=== PATIENT | female | born 1970 | race Caucasian/White ===

== ENCOUNTER 2020-09-24 17:51 | Observation (INO) | payer BC ==
--- NOTE | 2020-09-24 18:06 | ED ---
General Adult HPI - General Chief complaint: Abdominal Pain Stated complaint: flank pain Time Seen by Provider: 09/24/20 17:54 Source: patient, RN/MD, EMS, old records reviewed Mode of arrival: EMS Limitations: no limitations - History of Present Illness Initial comments: Patient was transferred to our ED by ambulance from [facility]. Per [facility] ER physician's report, the patient presented there complaining of having left flank pain radiating to the left side of her abdomen, nausea and vomiting. Per ER physician, the patient's CT imaging report showed a 18 mm linear density within the lumen of her distal jejunum, concerning for ingested foreign body. Per physician, there is no evidence of bowel obstruction or perforation on CT imaging. Per physician, the patient is afebrile and without leukocytosis. Per physician, the patient denied being aware of a foreign body ingestion. Patient was transferred here secondary to repeated episodes of pain, requiring multiple doses of pain medications. Patient states that her pain began about 3 days ago. Patient states that her pain is in her left flank region and radiates to the left side of her abdomen. Patient admits to nausea and vomiting. Patient denies known foreign body ingestion, trauma or injury, fever or chills, headache, chest pain, dyspnea, cough or cold symptoms, dizziness, lower abdominal pain, diarrhea or constipation, bloody or melanotic stool, hematemesis, dysuria/hematuria/urinary frequency/urinary symptoms, or any other symptoms or complaints. - Related Data Home Medications Medication Instructions Recorded Confirmed HYDROcodone/APAP 5-325MG [[place] 1 tab PO Q8H PRN 12/07/14 12/09/14 5-325] Omeprazole [PriLOSEC] 20 mg PO DAILY 12/07/14 12/09/14 amLODIPine [Norvasc] 10 mg PO DAILY 12/07/14 12/09/14 Previous Rx's Medication Instructions Recorded Ondansetron Odt [Zofran Odt] 4 mg PO Q8HR PRN #14 tab 12/09/14 Allergies Allergy/AdvReac Type Severity Reaction Status Date / Time No Known Allergies Allergy Verified 09/24/20 18:04 Review of Systems ROS Statement: Those systems with pertinent positive or pertinent negative responses have been documented in the HPI. ROS Other: All systems not noted in ROS Statement are negative. Past Medical History Past Medical History: Eye Disorder, GERD/Reflux, Hypertension Additional Past Medical History / Comment(s): cataract r eye. kidney stones History of Any Multi-Drug Resistant Organisms: None Reported Past Surgical History: Cholecystectomy Additional Past Surgical History / Comment(s): EGD Past Anesthesia/Blood Transfusion Reactions: No Reported Reaction Past Psychological History: No Psychological Hx Reported Smoking Status: Never smoker Past Alcohol Use History: None Reported Past Drug Use History: None Reported - Past Family History Mother Family Medical History: Cancer General Exam Limitations: no limitations General appearance: alert, in no apparent distress Head exam: Present: atraumatic, normocephalic Eye exam: Present: normal appearance, EOMI ENT exam: Present: mucous membranes moist Neck exam: Present: other (Trachea is in midline) Respiratory exam: Present: normal lung sounds bilaterally. Absent: respiratory distress, wheezes, rales, rhonchi, stridor Cardiovascular Exam: Present: regular rate, normal rhythm, normal heart sounds, other (Normal radial pulses bilaterally) GI/Abdominal exam: Present: soft, normal bowel sounds, other (Mild epigastric/left upper quadrant abdominal tenderness). Absent: distended, guarding, rebound Extremities exam: Absent: tenderness, pedal edema Back exam: Absent: tenderness, CVA tenderness (R), CVA tenderness (L) Neurological exam: Present: alert, oriented X3. Absent: motor sensory deficit Psychiatric exam: Present: normal affect, normal mood Skin exam: Present: warm, dry, intact, normal color Course Vital Signs 09/24/20 17:54 Temperature 98.6 F Pulse Rate 72 Respiratory 18 Rate Blood Pressure 134/88 O2 Sat by Pulse 98 Oximetry - Reevaluation(s) Reevaluation #1: 09/24/20 18:22 Case, H&P, outside hospital test results, my pre-arrival discussion with Dr. Boyd (general surgery) and ED management were discussed with Dr. Ferrari. He accepts hospital admission. He has no further recommendations at this time. Medical Decision Making - Medical Decision Making I discussed the patient's case with the on-call general surgeon (Dr. Boyd) based on the information I received from the [facility] ER physician. Dr. Boyd stated that given that there are no CT findings of perforation or ob struction, and given that the patient is afebrile and without leukocytosis, he did not feel that the patient was a surgical patient. He recommended admission to the medical service, and stated that he would see the patient in consultation. This was all discussed with Dr. Ferrari, and Dr. Ferrari has accepted hospital admission. Patient's outside hospital labs and imaging reports were all reviewed myself. They are pertinent for the CT findings discussed in the HPI, as well as normal WBC count of 6.23, a normal hemoglobin of 13.4, a normal CMP, a normal lipase, and a UA that is only remarkable for 2+ ketones and 1+ leuk esterase. Patient has a nonsurgical abdominal exam. I am uncertain whether the patient's symptoms are secondary to the CT finding of suspected foreign body, but there is no other definite explanation for the patient's symptoms. Will admit the patient to the hospital for observation, symptomatic management, serial examinations and general surgery consultation. Disposition Clinical Impression: Abdominal pain, Nausea and vomiting, Foreign body ingestion Disposition: ADMITTED IP TO THIS [facility] Condition: Stable Is patient prescribed a controlled substance at d/c from ED?: No Referrals: Lionel Perrin MD [Primary Care Provider] - 1-2 days Time of Disposition: 18:32
[2020-09-24] MEDS ORDERED: SODIUM CHLORIDE 0.9% 500 ML 500 ML IV ONE (18:21)
[2020-09-24] MEDS ORDERED: ONDANSETRON 4 MG/2 ML VIAL IVP STA (18:21)
[2020-09-24] MEDS ORDERED: ONDANSETRON 4 MG/2 ML VIAL IVP PRN (18:32)
[2020-09-24] MEDS ORDERED: MORPHINE SULFATE 4 MG/ML SYRINGE IV PRN (18:32)
[2020-09-24] MEDS ORDERED: NALOXONE 0.4 MG/ML 1 ML VIAL IV PRN (18:32)
[2020-09-24 20:28] VITALS: RESP 16
[2020-09-24] MEDS ORDERED: PROCHLORPERAZINE INJ 10 MG/2 ML VIAL IVP PRN (20:28)
[2020-09-24] MEDS: SODIUM CHLORIDE 0.9% 1,000 ML IV SCH (21:35)
[2020-09-24] MEDS: TAMSULOSIN 0.4 MG CAP.ER.24H PO SCH (21:48)
--- NOTE | 2020-09-24 22:01 | XR ---
EXAMINATION TYPE: XR abdomen acute w cxr DATE OF EXAM: 09/24/2020 COMPARISON: NONE HISTORY: Abdominal pain TECHNIQUE: 4 views FINDINGS: Heart and mediastinum are normal. Lungs are clear. Diaphragm is normal. Bowel gas pattern i s normal. There is no sign of intestinal obstruction or pneumoperitoneum. Fecal pattern is normal. Th ere are clips from cholecystectomy. There are wires from tubal surgery.. IMPRESSION: Nonacute abdomen. No active cardiopulmonary disease. Normal heart.
--- NOTE | 2020-09-24 22:32 | P.HPIM ---
History of Present Illness H&P Date: 09/24/20 Chief Complaint: left flank pain History of presenting complaint: This is a pleasant 50-year-old patient of Dr. Perrin. Chronic stable medical conditions include diabetes, GERD, hypertension, hypothyroid. Patient's had kidney stones before. Patient now presents with 3 days of increasing left flank pain. Usually to the front. Some associated chills. Urinary frequency. Pain comes and spasms. Patient was initially seen at [facility] and sent down here. Patient did have a computed tomography scan imaging that showed an 18 mm lead-in density within the lumen of the distal jejunum. There is a concern over ingested foreign body. Patient denies any ingestion of the same. ER physician did speak to GIM called Dr. Resendiz and Dr. matt from general surgery. Patient been having significant pain. Has decided to come in. Review of systems: GEN.: Tired some chills EYES: None HEENT: None NECK: None RESPIRATORY: None CARDIOVASCULAR: None GASTROINTESTINAL: As above GENITOURINARY: None MUSCULOSKELETAL: None LYMPHATICS: None HEMATOLOGICAL: None PSYCHIATRY: None NEUROLOGICAL: None Past medical history to include: Diabetes, GERD, hypertension, Regular), kidney stones, endometriosis Social history: Does not smoke or drink alcohol. . Employed. Physical examination: VITAL SIGNS: 97.5, 75, 16, 130/83, 99% room air GENERAL: BMI 25.2, laying in bed, but uncomfortable. EYES: Pupils equal. Conjunctiva normal. HEENT: External appearance of nose and ears normal, oral cavity grossly normal. NECK: JVD not raised; masses not palpable. HEART: First and second heart sounds are normal; no edema. LUNGS: Respiratory rate normal; clear to auscultation. ABDOMEN: Soft, left renal angle tenderness, no guarding rigidity, liver spleen not palpable, no masses palpable. PSYCH: Alert and oriented x3; mood and affect normal. NEUROLOGICAL: Cranial nerves grossly intact; no facial asymmetry, power and sensation grossly intact. LYMPHATICS: No lymph nodes palpable in the axilla and neck INVESTIGATIONS, reviewed in the clinical context: Coronavirus [PCR]-not detected Labs from [facility]: Sodium 139 potassium 3.6 creatinine 0.4 lactic acid 0.7 lipase 110 UA positive for leukoesterase, WBC 5-10, squamous epithelial cells 2-4 Computed tomography scan his abdomen describing 18 mm foreign body in the distal jejunum Assessment and plan: -This is a patient with prior knee stones presents with left flank pain. Pain is on the shaft paroxysmal. Present for 3-4 days. Most likely this is a stone in the renal pelvic junction. We will increase IV fluids to 20 mL an hour. Consult urology. -Computed tomography scan showing a distal jejunal 18 mm foreign body. Patient denies ingestion of the same. General surgery is consulted for the same. -Diabetes mellitus type 2 Diet controlled -GERD Prilosec continue -Essential hypertension Zestril continue -Hypothyroid Continue levothyroxin Consult urology and chills surgery. Home medications resumed. Increase IV fluids to 20 mL an hour. Flomax added. Pain control. Patient be given a hat to pass urine in the same./Net Lovenox for DVT prophylaxis. Past Medical History Past Medical History: Diabetes Mellitus, Eye Disorder, GERD/Reflux, Hypertension Additional Past Medical History / Comment(s): cataract r eye. kidney stones,. hypokalemia/hypomagnesemia - had to be hospitalized, endometriosis. History of Any Multi-Drug Resistant Organisms: None Reported, C-DIFF Date of last positivie culture/infection: 2001 MDRO Source:: Stool Past Surgical History: Cholecystectomy Additional Past Surgical History / Comment(s): EGD Past Anesthesia/Blood Transfusion Reactions: No Reported Reaction, Postoperative Nausea & Vomiting (PONV) Past Psychological History: No Psychological Hx Reported Smoking Status: Never smoker Past Alcohol Use History: None Reported Past Drug Use History: None Reported Additional Drug Use History / Comment(s): Denies alcohol use, denies smoking tobacco or marijuana. - Past Family History Mother Family Medical History: Cancer Medications and Allergies Home Medications Medication Instructions Recorded Confirmed Type Acetaminophen [Tylenol] 1,000 mg PO Q4-6H PRN 09/24/20 09/24/20 History Calcium Carbonate/Vitamin D3 1 tab PO DAILY 09/24/20 09/24/20 History [Calcium 600-Vit D3 5 Mcg (200 Iu)] Cetirizine HCl [Zyrtec] 10 mg PO DAILY 09/24/20 09/24/20 History Cholecalciferol (Vitamin D3) 125 mcg PO DAILY 09/24/20 09/24/20 History [Vitamin D3 (5000 Iu)] Cyanocobalamin [Vitamin B-12] 500 mcg PO DAILY 09/24/20 09/24/20 History Ergocalciferol (Vitamin D2) 1,250 mcg PO TUFR 09/24/20 09/24/20 History [Drisdol (50,000 Iu)] Levothyroxine Sodium 88 mcg PO DAILY 09/24/20 09/24/20 History Multivitamins, Thera [Multivitamin 1 tab PO DAILY 09/24/20 09/24/20 History (formulary)] Omeprazole [PriLOSEC] 40 mg PO DAILY 09/24/20 09/24/20 History Potassium Gluconate 99 mg PO DAILY 09/24/20 09/24/20 History Turmeric Root Extract [Turmeric] 500 mg PO DAILY 09/24/20 09/24/20 History lisinopriL [Zestril] 2.5 mg PO DAILY 09/24/20 09/24/20 History Allergies Allergy/AdvReac Type Severity Reaction Status Date / Time No Known Allergies Allergy Verified 09/24/20 21:22 Physical Exam Vitals: Vital Signs Temp Pulse Pulse Resp BP BP Pulse Ox 09/24/20 20:28 97.5 F L 75 16 130/83 99 09/24/20 19:00 98.4 F 75 18 135/85 100 09/24/20 17:54 98.6 F 72 18 134/88 98 Intake and Output 09/24/20 09/24/20 09/24/20 06:59 14:59 22:59 Other: Voiding Method Toilet Weight 66.678 kg Thrombosis Risk Factor Assmnt - Choose All That Apply Any of the Below Risk Factors Present?: Yes Each Factor Represents 1 point: Age 41-60 years Other Risk Factors: No Other congenital or acquired thrombophilia - If yes, enter type in comment: No Thrombosis Risk Factor Assessment Total Risk Factor Score: 1 Thrombosis Risk Factor Assessment Level: Low Risk
[2020-09-24 23:37] LABS: Basophils % (A) 0 %; Eosinophils # (A) 0.1 k/uL (0-0.7); Eosinophils % (A) 1 %; HCT 41.2 % (34.0-46.0); HGB 13.4 gm/dL (11.4-16.0); Lymphocytes # (A) 0.7 k/uL (1.0-4.8); Lymphocytes % (A) 9 %; MCH 29.1 pg (25.0-35.0); MCHC 32.6 g/dL (31.0-37.0); MCV 89.3 fL (80.0-100.0); Mean Platelet Volume 8.4; Monocytes # (A) 0.2 k/uL (0-1.0); Monocytes % (A) 3 %; Neutrophils # (A) 7.3 k/uL (1.3-7.7); Neutrophils % (A) 87 %; Platelet Count 279 k/uL (150-450); RBC 4.61 m/uL (3.80-5.40); RDW 13.5 % (11.5-15.5); WBC 8.4 k/uL (3.8-10.6)
[2020-09-24 23:55] LABS: ALT 13 U/L (4-34); AST 21 U/L (14-36); African American GFR (CKD) >90 (>60 ml/min/1.73 sqM); Albumin 3.8 g/dL (3.5-5.0); Alkaline Phosphatase 55 U/L (38-126); Anion Gap 8 mmol/L; Blood Urea Nitrogen 16 mg/dL (7-17); Calcium 8.9 mg/dL (8.4-10.2); Carbon Dioxide 23 mmol/L (22-30); Chloride 105 mmol/L (98-107); Glucose 106 mg/dL (74-99); Non-African American GFR(CKD) >90 (>60 ml/min/1.73 sqM); Sodium 136 mmol/L (137-145); Total Bilirubin 0.9 mg/dL (0.2-1.3); Total Protein 6.7 g/dL (6.3-8.2)
[2020-09-24 23:59] LABS: Potassium 4.3 mmol/L (3.5-5.1)
[2020-09-25] MEDS: LEVOTHYROXINE 88 MCG TAB PO SCH (06:24)
[2020-09-25] MEDS: SODIUM CHLORIDE 0.9% 1,000 ML IV SCH ×4 (06:25→20:21)
[2020-09-25 07:15] LABS: Basophils % (A) 0 %; Eosinophils # (A) 0.1 k/uL (0-0.7); Eosinophils % (A) 1 %; HCT 40.1 % (34.0-46.0); HGB 13.2 gm/dL (11.4-16.0); Lymphocytes # (A) 1.9 k/uL (1.0-4.8); Lymphocytes % (A) 31 %; MCH 28.5 pg (25.0-35.0); MCV 86.4 fL (80.0-100.0); Mean Platelet Volume 8.1; Monocytes # (A) 0.4 k/uL (0-1.0); Monocytes % (A) 7 %; Neutrophils # (A) 3.6 k/uL (1.3-7.7); Neutrophils % (A) 59 %; Platelet Count 284 k/uL (150-450); RBC 4.65 m/uL (3.80-5.40); RDW 13.5 % (11.5-15.5); WBC 6.1 k/uL (3.8-10.6)
[2020-09-25] MEDS: MORPHINE SULFATE 2 MG/ML SYRINGE IV PRN ×2 (07:15→17:58)
--- NOTE | 2020-09-25 07:24 | XR ---
EXAMINATION TYPE: XR abdomen acute w cxr DATE OF EXAM: 09/25/2020 COMPARISON: 09/24/2020 HISTORY: Abdominal pain TECHNIQUE: 4 views FINDINGS: Heart size is within normal limits. No focal consolidation, pneumothorax or pleural effusio n. Nonspecific, nonobstructive bowel gas pattern. Surgical clips in the right upper quadrant suggesti ve postcholecystectomy. No evidence of free air on the upright view. Moderate stool and gas are seen throughout the colon. Tubal ligation clips are seen. Multiple presumed pelvic phleboliths. IMPRESSION: 1. No evidence of acute pulmonary disease. 2. Nonspecific, nonobstructive bowel gas pattern. 3. Cholecystectomy clips.
[2020-09-25 07:36] LABS: ALT 11 U/L (4-34); AST 20 U/L (14-36); African American GFR (CKD) >90 (>60 ml/min/1.73 sqM); Albumin 3.5 g/dL (3.5-5.0); Alkaline Phosphatase 50 U/L (38-126); Anion Gap 4 mmol/L; Blood Urea Nitrogen 14 mg/dL (7-17); Calcium 8.6 mg/dL (8.4-10.2); Carbon Dioxide 24 mmol/L (22-30); Chloride 110 mmol/L (98-107); Glucose 83 mg/dL (74-99); Non-African American GFR(CKD) >90 (>60 ml/min/1.73 sqM); Potassium 4.1 mmol/L (3.5-5.1); Sodium 138 mmol/L (137-145); Total Bilirubin 0.9 mg/dL (0.2-1.3); Total Protein 6.3 g/dL (6.3-8.2)
[2020-09-25] MEDS: PANTOPRAZOLE 40 MG TABLET PO SCH (08:42)
[2020-09-25] MEDS: CYANOCOBALAMIN 500 MCG TAB PO SCH (08:42)
[2020-09-25] MEDS: MULTIVITAMINS, THERA 1 EACH TAB PO SCH (08:42)
--- NOTE | 2020-09-25 08:56 | P.GSCN ---
History of Present Illness Consult date: 09/25/20 History of present illness: 50 yo female with a several day history of back pain. SHe has a history of kidney stones in the past, non surgical. SHe went to the er where she had a ct scan that didnt show any stones. She is still having some pain there are no obvious gi complaints but the ct scan suggested a foreign body in the jejunum? Her urine perhaps has infection. Her wbc are normal She has no back problems. there are no symptoms of neuropathy. Review of Systems All systems: negative - Constitutional Denies fever, Denies weight loss - EENT Eyes: denies blurred vision Ears, nose, mouth and throat: Denies dysphagia - Cardiovascular Denies chest pain, Denies shortness of breath - Respiratory Denies cough, Denies 7 - Gastrointestinal Reports as per HPI - Genitourinary Genitourinary: Denies dysuria, Denies hematuria - Integumentary Denies rash, Denies unusual bruising - Neurological Denies headaches, Denies syncope - Hematologic/Lymphatic Denies easy bleeding, Denies easy bruising Past Medical History Past Medical History: Diabetes Mellitus, Eye Disorder, GERD/Reflux, Hypertension Additional Past Medical History / Comment(s): cataract r eye. kidney stones,. hypokalemia/hypomagnesemia - had to be hospitalized, endometriosis. History of Any Multi-Drug Resistant Organisms: None Reported, C-DIFF Year Discovered:: 2001 MDRO Source:: Stool Past Surgical History: Cholecystectomy Additional Past Surgical History / Comment(s): EGD Past Anesthesia/Blood Transfusion Reactions: No Reported Reaction, Postoperative Nausea & Vomiting (PONV) Past Psychological History: No Psychological Hx Reported Smoking Status: Never smoker Past Alcohol Use History: None Reported Past Drug Use History: None Reported Additional Drug Use History / Comment(s): Denies alcohol use, denies smoking tobacco or marijuana. - Past Family History Mother Family Medical History: Cancer Medications and Allergies Home Medications Medication Instructions Recorded Confirmed Type Acetaminophen [Tylenol] 1,000 mg PO Q4-6H PRN 09/24/20 09/24/20 History Calcium Carbonate/Vitamin D3 1 tab PO DAILY 09/24/20 09/24/20 History [Calcium 600-Vit D3 5 Mcg (200 Iu)] Cetirizine HCl [Zyrtec] 10 mg PO DAILY 09/24/20 09/24/20 History Cholecalciferol (Vitamin D3) 125 mcg PO DAILY 09/24/20 09/24/20 History [Vitamin D3 (5000 Iu)] Cyanocobalamin [Vitamin B-12] 500 mcg PO DAILY 09/24/20 09/24/20 History Ergocalciferol (Vitamin D2) 1,250 mcg PO TUFR 09/24/20 09/24/20 History [Drisdol (50,000 Iu)] Levothyroxine Sodium 88 mcg PO DAILY 09/24/20 09/24/20 History Multivitamins, Thera [Multivitamin 1 tab PO DAILY 09/24/20 09/24/20 History (formulary)] Omeprazole [PriLOSEC] 40 mg PO DAILY 09/24/20 09/24/20 History Potassium Gluconate 99 mg PO DAILY 09/24/20 09/24/20 History Turmeric Root Extract [Turmeric] 500 mg PO DAILY 09/24/20 09/24/20 History lisinopriL [Zestril] 2.5 mg PO DAILY 09/24/20 09/24/20 History Allergies Allergy/AdvReac Type Severity Reaction Status Date / Time No Known Allergies Allergy Verified 09/24/20 21:22 Surgical - Exam Vital Signs Temp Pulse Resp BP Pulse Ox 98.6 F 72 18 134/88 98 09/24/20 17:54 09/24/20 17:54 09/24/20 17:54 09/24/20 17:54 09/24/20 17:54 Results - Labs 09/25/20 06:51 09/25/20 06:51 Abnormal Lab Results - Last 24 Hours (Table) 09/24/20 09/24/20 09/25/20 Range/Units 23:10 23:11 06:51 Lymphocytes # 0.7 L (1.0-4.8) k/uL Sodium 136 L (137-145) mmol/L Chloride 110 H (98-107) mmol/L Creatinine 0.33 L 0.42 L (0.52-1.04) mg/dL Glucose 106 H (74-99) mg/dL Diabetes panel 09/24/20 09/25/20 Range/Units 23:10 06:51 Sodium 136 L 138 (137-145) mmol/L Potassium 4.3 4.1 (3.5-5.1) mmol/L Chloride 105 110 H (98-107) mmol/L Carbon Dioxide 23 24 (22-30) mmol/L BUN 16 14 (7-17) mg/dL Creatinine 0.33 L 0.42 L (0.52-1.04) mg/dL Glucose 106 H 83 (74-99) mg/dL Calcium 8.9 8.6 (8.4-10.2) mg/dL AST 21 20 (14-36) U/L ALT 13 11 (4-34) U/L Alkaline Phosphatase 55 50 (38-126) U/L Total Protein 6.7 6.3 (6.3-8.2) g/dL Albumin 3.8 3.5 (3.5-5.0) g/dL Calcium panel 09/24/20 09/25/20 Range/Units 23:10 06:51 Calcium 8.9 8.6 (8.4-10.2) mg/dL Albumin 3.8 3.5 (3.5-5.0) g/dL Pituitary panel 09/24/20 09/25/20 Range/Units 23:10 06:51 Sodium 136 L 138 (137-145) mmol/L Potassium 4.3 4.1 (3.5-5.1) mmol/L Chloride 105 110 H (98-107) mmol/L Carbon Dioxide 23 24 (22-30) mmol/L BUN 16 14 (7-17) mg/dL Creatinine 0.33 L 0.42 L (0.52-1.04) mg/dL Glucose 106 H 83 (74-99) mg/dL Calcium 8.9 8.6 (8.4-10.2) mg/dL Adrenal panel 09/24/20 09/25/20 Range/Units 23:10 06:51 Sodium 136 L 138 (137-145) mmol/L Potassium 4.3 4.1 (3.5-5.1) mmol/L Chloride 105 110 H (98-107) mmol/L Carbon Dioxide 23 24 (22-30) mmol/L BUN 16 14 (7-17) mg/dL Creatinine 0.33 L 0.42 L (0.52-1.04) mg/dL Glucose 106 H 83 (74-99) mg/dL Calcium 8.9 8.6 (8.4-10.2) mg/dL Total Bilirubin 0.9 0.9 (0.2-1.3) mg/dL AST 21 20 (14-36) U/L ALT 13 11 (4-34) U/L Alkaline Phosphatase 55 50 (38-126) U/L Total Protein 6.7 6.3 (6.3-8.2) g/dL Albumin 3.8 3.5 (3.5-5.0) g/dL - Imaging CT scan - abdomen: report reviewed CT scan - pelvis: report reviewed Assessment and Plan Assessment: Impression: Left flank pain, non urologic. Plan; Th ct scan doesnt show any stones. If she passed a stone then I would suspect her pain to be decreasing. Her urine didnt show any red blood. The possibility of infection is entertained but with a normal serum wbc that would go against pyelonephritis as a cause of the flank pain. I have nothing else to offer at present.
--- NOTE | 2020-09-25 12:00 | P.GSCN ---
History of Present Illness Consult date: 09/25/20 History of present illness: 50 year old female who has had mostly flank and back pain since friday presented to outside hospital. She admits to some nausea but has been having normal BM with no blood or diarrhea. She has had a cholecystectomy in the past, she has also had nephrolithisis in the past. On CT at outside [facility] there was a question of a possible ingestion of small foreign body in distal jejunum. This was described as a linear 18mm non obstructing non perforating opacity. Patient is denying abdominal pain today and states she has left flank and back pain. She denies any ingestion of anything other than food. Past Medical History Past Medical History: Diabetes Mellitus, Eye Disorder, GERD/Reflux, Hypertension Additional Past Medical History / Comment(s): cataract r eye. kidney stones,. hypokalemia/hypomagnesemia - had to be hospitalized, endometriosis. History of Any Multi-Drug Resistant Organisms: None Reported, C-DIFF Year Discovered:: 2001 MDRO Source:: Stool Past Surgical History: Cholecystectomy Additional Past Surgical History / Comment(s): EGD Past Anesthesia/Blood Transfusion Reactions: No Reported Reaction, Postoperative Nausea & Vomiting (PONV) Past Psychological History: No Psychological Hx Reported Smoking Status: Never smoker Past Alcohol Use History: None Reported Past Drug Use History: None Reported Additional Drug Use History / Comment(s): Denies alcohol use, denies smoking tobacco or marijuana. - Past Family History Mother Family Medical History: Cancer Medications and Allergies Home Medications Medication Instructions Recorded Confirmed Type Acetaminophen [Tylenol] 1,000 mg PO Q4-6H PRN 09/24/20 09/24/20 History Calcium Carbonate/Vitamin D3 1 tab PO DAILY 09/24/20 09/24/20 History [Calcium 600-Vit D3 5 Mcg (200 Iu)] Cetirizine HCl [Zyrtec] 10 mg PO DAILY 09/24/20 09/24/20 History Cholecalciferol (Vitamin D3) 125 mcg PO DAILY 09/24/20 09/24/20 History [Vitamin D3 (5000 Iu)] Cyanocobalamin [Vitamin B-12] 500 mcg PO DAILY 09/24/20 09/24/20 History Ergocalciferol (Vitamin D2) 1,250 mcg PO TUFR 09/24/20 09/24/20 History [Drisdol (50,000 Iu)] Levothyroxine Sodium 88 mcg PO DAILY 09/24/20 09/24/20 History Multivitamins, Thera [Multivitamin 1 tab PO DAILY 09/24/20 09/24/20 History (formulary)] Omeprazole [PriLOSEC] 40 mg PO DAILY 09/24/20 09/24/20 History Potassium Gluconate 99 mg PO DAILY 09/24/20 09/24/20 History Turmeric Root Extract [Turmeric] 500 mg PO DAILY 09/24/20 09/24/20 History lisinopriL [Zestril] 2.5 mg PO DAILY 09/24/20 09/24/20 History Allergies Allergy/AdvReac Type Severity Reaction Status Date / Time No Known Allergies Allergy Verified 09/24/20 21:22 Surgical - Exam Osteopathic Statement: *. No significant issues noted on an osteopathic structural exam other than those noted in the History and Physical/Consult. Vital Signs Temp Pulse Resp BP Pulse Ox 98.6 F 72 18 134/88 98 09/24/20 17:54 09/24/20 17:54 09/24/20 17:54 09/24/20 17:54 09/24/20 17:54 - General well developed, well nourished, no distress - Neck no masses, trachea midline - Respiratory normal expansion, normal respiratory effort - Abdomen nondistended, no RRG Abdomen: soft, non tender - Neurologic normal coordination, normal sensation - Psychiatric oriented to time, oriented to person, oriented to place Results - Labs 09/25/20 06:51 09/25/20 06:51 Abnormal Lab Results - Last 24 Hours (Table) 09/24/20 09/24/20 09/25/20 Range/Units 23:10 23:11 06:51 Lymphocytes # 0.7 L (1.0-4.8) k/uL Sodium 136 L (137-145) mmol/L Chloride 110 H (98-107) mmol/L Creatinine 0.33 L 0.42 L (0.52-1.04) mg/dL Glucose 106 H (74-99) mg/dL Diabetes panel 09/24/20 09/25/20 Range/Units 23:10 06:51 Sodium 136 L 138 (137-145) mmol/L Potassium 4.3 4.1 (3.5-5.1) mmol/L Chloride 105 110 H (98-107) mmol/L Carbon Dioxide 23 24 (22-30) mmol/L BUN 16 14 (7-17) mg/dL Creatinine 0.33 L 0.42 L (0.52-1.04) mg/dL Glucose 106 H 83 (74-99) mg/dL Calcium 8.9 8.6 (8.4-10.2) mg/dL AST 21 20 (14-36) U/L ALT 13 11 (4-34) U/L Alkaline Phosphatase 55 50 (38-126) U/L Total Protein 6.7 6.3 (6.3-8.2) g/dL Albumin 3.8 3.5 (3.5-5.0) g/dL Calcium panel 09/24/20 09/25/20 Range/Units 23:10 06:51 Calcium 8.9 8.6 (8.4-10.2) mg/dL Albumin 3.8 3.5 (3.5-5.0) g/dL Pituitary panel 09/24/20 09/25/20 Range/Units 23:10 06:51 Sodium 136 L 138 (137-145) mmol/L Potassium 4.3 4.1 (3.5-5.1) mmol/L Chloride 105 110 H (98-107) mmol/L Carbon Dioxide 23 24 (22-30) mmol/L BUN 16 14 (7-17) mg/dL Creatinine 0.33 L 0.42 L (0.52-1.04) mg/dL Glucose 106 H 83 (74-99) mg/dL Calcium 8.9 8.6 (8.4-10.2) mg/dL Adrenal panel 09/24/20 09/25/20 Range/Units 23:10 06:51 Sodium 136 L 138 (137-145) mmol/L Potassium 4.3 4.1 (3.5-5.1) mmol/L Chloride 105 110 H (98-107) mmol/L Carbon Dioxide 23 24 (22-30) mmol/L BUN 16 14 (7-17) mg/dL Creatinine 0.33 L 0.42 L (0.52-1.04) mg/dL Glucose 106 H 83 (74-99) mg/dL Calcium 8.9 8.6 (8.4-10.2) mg/dL Total Bilirubin 0.9 0.9 (0.2-1.3) mg/dL AST 21 20 (14-36) U/L ALT 13 11 (4-34) U/L Alkaline Phosphatase 55 50 (38-126) U/L Total Protein 6.7 6.3 (6.3-8.2) g/dL Albumin 3.8 3.5 (3.5-5.0) g/dL Assessment and Plan Assessment: Back and flank pain questionable foreign body ingestion Nephrolithiasis Plan: Patient is not having obstructive symptoms, no sign of bowel perforation, she is not having any abdominal pain at all today. CT finding of the foreign body is likely incidental and it should pass on its own seeing as it is only 18mm. Defer to urology and medicine for back/flank pain. No plans for surgical intervention. Imaging has been negative for any foreign body since admission.
[2020-09-25 14:59] LABS: Hemoglobin A1C 5.6 % (4.0-6.0)
--- NOTE | 2020-09-25 19:20 | XR ---
EXAMINATION TYPE: XR lumbar spine 2 or 3V DATE OF EXAM: 09/25/2020 COMPARISON: NONE HISTORY: Low back pain TECHNIQUE: 3 views FINDINGS: Lumbar vertebra have normal alignment. There is minor spurring of the endplates. Posterior elements are intact. There is no compression fracture. Sacroiliac joints are intact. There are clips from cholecystectomy. IMPRESSION: Negative lumbar spine exam. No fracture.
[2020-09-25] MEDS ORDERED: ACETAMINOPHEN TAB 500 MG TAB PO PRN (20:14)
--- NOTE | 2020-09-25 20:14 | P.PN ---
Progress Note - Text Progress Note Date: 09/25/20 Chief Complaint: left flank pain History of presenting complaint: This is a pleasant 50-year-old patient of Dr. Perrin. Chronic stable medical conditions include diabetes, GERD, hypertension, hypothyroid. Patient's had kidney stones before. Patient now presents with 3 days of increasing left flank pain. Usually to the front. Some associated chills. Urinary frequency. Pain comes and spasms. Patient was initially seen at [facility] and sent down here. Patient did have a computed tomography scan imaging that showed an 18 mm lead-in density within the lumen of the distal jejunum. There is a concern over ingested foreign body. Patient denies any ingestion of the same. ER physician did speak to GI called Dr. Resendiz and Dr. matt from general surgery. Patient been having significant pain. Has decided to come in. Today: Patient getting IV fluids. Pain is better. Encourage oral intake. No stones seen on radiological studies. Consultation done with surgery and urology. Not ready further intervention. Lumbar spine x-ray was ordered. Review of systems: Was done for constitutional, cardiovascular, GI, pulmonary. relevant finding as above Active Medications Cyanocobalamin (Cyanocobalamin 500 Mcg Tab) 500 mcg PO DAILY [facility] Last Admin: 09/25/20 08:42 Dose: 500 mcg Documented by: Sodium Chloride (Saline 0.9%) 1,000 mls @ 200 mls/hr IV .Q5H [facility] Last Admin: 09/25/20 18:30 Dose: 200 mls/hr Documented by: Levothyroxine Sodium (Levothyroxine 88 Mcg Tab) 88 mcg PO 0630 [facility] Last Admin: 09/25/20 06:24 Dose: 88 mcg Documented by: Lisinopril (Lisinopril 2.5 Mg Tab) 2.5 mg PO DAILY [facility] Last Admin: 09/25/20 08:42 Dose: 2.5 mg Documented by: Morphine Sulfate (Morphine Sulfate 2 Mg/Ml Syringe) 2 mg IV Q3HR PRN PRN Reason: Severe Pain Last Admin: 09/25/20 17:58 Dose: 2 mg Documented by: Multivitamins (Multivitamins, Thera 1 Each Tab) 1 each PO DAILY [facility] Last Admin: 09/25/20 08:42 Dose: 1 each Documented by: Naloxone HCl (Naloxone 0.4 Mg/Ml 1 Ml Vial) 0.2 mg IV Q2M PRN PRN Reason: Opioid Reversal Ondansetron HCl (Ondansetron 4 Mg/2 Ml Vial) 4 mg IVP Q8HR PRN PRN Reason: Nausea And Vomiting Last Admin: 09/25/20 08:41 Dose: 4 mg Documented by: Pantoprazole Sodium (Pantoprazole 40 Mg Tablet) 40 mg PO DAILY [facility] Last Admin: 09/25/20 08:42 Dose: 40 mg Documented by: Prochlorperazine Edisylate (Prochlorperazine Inj 10 Mg/2 Ml Vial) 5 mg IVP Q8H PRN PRN Reason: Nausea And Vomiting Last Admin: 09/24/20 21:03 Dose: 5 mg Documented by: Tamsulosin HCl (Tamsulosin 0.4 Mg Cap.Er.24h) 0.4 mg PO HS [facility] Last Admin: 09/24/20 21:48 Dose: 0.4 mg Documented by: Past medical history to include: Diabetes, GERD, hypertension, Regular), kidney stones, endometriosis Social history: Does not smoke or drink alcohol. . Employed. Physical examination: VITAL SIGNS: 97.4, 78, 16, 108/67, 99% room air GENERAL: BMI 25.2, laying in bed, not in distress EYES: Pupils equal. Conjunctiva normal. HEENT: External appearance of nose and ears normal, oral cavity grossly normal. NECK: JVD not raised; masses not palpable. HEART: First and second heart sounds are normal; no edema. LUNGS: Respiratory rate normal; clear to auscultation. ABDOMEN: Soft, minimal left renal angle tenderness, no guarding rigidity, liver spleen not palpable, no masses palpable. PSYCH: Alert and oriented x3; mood and affect normal. INVESTIGATIONS, reviewed in the clinical context: September 25: WBC 6.1 hemoglobin 13.2 potassium 4.1 creatinine 0.42( Coronavirus [PCR]-not detected Labs from [facility]: Sodium 139 potassium 3.6 creatinine 0.4 lactic acid 0.7 lipase 110 UA positive for leukoesterase, WBC 5-10, squamous epithelial cells 2-4 Computed tomography scan his abdomen describing 18 mm foreign body in the distal jejunum Assessment and plan: -Left flank pain. There was question about a foreign body. Doesn't seem that causing the symptoms. No stones seen on radiological studies. Could be muscular skeletal pain. Ordered lumbar spine x-ray -Computed tomography scan showing a distal jejunal 18 mm foreign body. Seen by surgery. Not for any further intervention. Expect it to pass out on his own. No anterior tenderness of the abdomen. -Diabetes mellitus type 2 Diet controlled -GERD Prilosec continue -Essential hypertension Zestril continue -Hypothyroid Continue levothyroxin We will watch the patient overnight. Get a lumbar spine x-ray. Continue IV fluids. DC morphine. Tylenol if needed. Increase activity.
[2020-09-25] MEDS: TAMSULOSIN 0.4 MG CAP.ER.24H PO SCH (20:21)
[2020-09-26] MEDS: SODIUM CHLORIDE 0.9% 1,000 ML IV SCH ×4 (01:36→08:53)
[2020-09-26] MEDS: LEVOTHYROXINE 88 MCG TAB PO SCH (06:18)
[2020-09-26] MEDS: CYANOCOBALAMIN 500 MCG TAB PO SCH (08:25)
[2020-09-26] MEDS: PANTOPRAZOLE 40 MG TABLET PO SCH (08:26)
[2020-09-26] MEDS: MULTIVITAMINS, THERA 1 EACH TAB PO SCH (08:26)
[2020-09-26 08:52] VITALS: BP 124/76; PULSE 76; TEMP 97.9
--- NOTE | 2020-09-26 10:53 | P.PN ---
Progress Note - Text Progress Note Date: 09/26/20 Patient was not in her room in unavailable to the examined during rounds. Per nursing patient was feeling much better and denied abdominal pain today. If patient's pain is resolved and she is tolerating a diet she is cleared from a surgical standpoint. No plans for any surgical intervention at this time
--- NOTE | 2020-09-26 22:33 | P.DS ---
Providers Date of admission: 09/24/20 18:32 Expected date of discharge: 09/26/20 Attending physician: Kobe Ferrari Consults: 09/24/20 18:32 Consult Physician Urgent Consulting Provider: Luis Boyd Consult Reason/Comments: Ingested foreign-body, abdominal pain, vomiting Do you want consulting provider notified?: Yes 09/24/20 23:25 Consult Physician Routine Consulting Provider: Ken Stock Consult Reason/Comments: Possible kidney stone Do you want consulting provider notified?: Yes Primary care physician: [facility] Course: Chief Complaint: left flank pain History of presenting complaint: This is a pleasant 50-year-old patient of Dr. Perrin. Chronic stable medical conditions include diabetes, GERD, hypertension, hypothyroid. Patient's had kidney stones before. Patient now presents with 3 days of increasing left flank pain. Usually to the front. Some associated chills. Urinary frequency. Pain comes and spasms. Patient was initially seen at [facility] and sent down here. Patient did have a computed tomography scan imaging that showed an 18 mm lead-in density within the lumen of the distal jejunum. There is a concern over ingested foreign body. Patient denies any ingestion of the same. ER physician did speak to GIM called Dr. Resendiz and Dr. boyd from general surgery. Patient been having significant pain. Has decided to come in. Today: This morning noted that in the neck patient had some Grit, patient had been getting IV fluids. Pain is completely resolved. Small kidney stone is felt to be the cause. Discussion and discharge planning more than 35 minutes Consultation: Dr. boyd from general surgery Dr. Hernandez from urology Past medical history to include: Diabetes, GERD, hypertension, Regular), kidney stones, endometriosis Social history: Does not smoke or drink alcohol. . Employed. Physical examination: VITAL SIGNS: 97.9, 76, 16, 124/76, 99% room air GENERAL: BMI 25.2, sitting is 80 the bed, comfortable EYES: Pupils equal. Conjunctiva normal. HEENT: External appearance of nose and ears normal, oral cavity grossly normal. NECK: JVD not raised; masses not palpable. HEART: First and second heart sounds are normal; no edema. LUNGS: Respiratory rate normal; clear to auscultation. ABDOMEN: Soft, no left renal angle tenderness, no guarding rigidity, liver sple en not palpable, no masses palpable. PSYCH: Alert and oriented x3; mood and affect normal. INVESTIGATIONS, reviewed in the clinical context: September 25: WBC 6.1 hemoglobin 13.2 potassium 4.1 creatinine 0.42( Coronavirus [PCR]-not detected Labs from [facility]: Sodium 139 potassium 3.6 creatinine 0.4 lactic acid 0.7 lipase 110 UA positive for leukoesterase, WBC 5-10, squamous epithelial cells 2-4 Computed tomography scan his abdomen describing 18 mm foreign body in the distal jejunum Assessment and plan: -Left flank pain. Very small/Grit left kidney stones-improve with IV fluids -Computed tomography scan showing a distal jejunal 18 mm foreign body. Seen by surgery. any further intervention. Clinical significance unclear -Diabetes mellitus type 2 Diet controlled -GERD Prilosec continue -Essential hypertension Zestril continue -Hypothyroid Continue levothyroxin Disposition: Home Patient Condition at Discharge: Stable Plan - Discharge Summary Discharge Rx Participant: Yes New Discharge Prescriptions: Continue Cyanocobalamin [Vitamin B-12] 500 mcg PO DAILY Cholecalciferol (Vitamin D3) [Vitamin D3 (5000 Iu)] 125 mcg PO DAILY Ergocalciferol (Vitamin D2) [Drisdol (50,000 Iu)] 1,250 mcg PO TUFR Omeprazole [PriLOSEC] 40 mg PO DAILY Levothyroxine Sodium 88 mcg PO DAILY Cetirizine HCl [Zyrtec] 10 mg PO DAILY Calcium Carbonate/Vitamin D3 [Calcium 600-Vit D3 5 Mcg (200 Iu)] 1 tab PO DAILY Turmeric Root Extract [Turmeric] 500 mg PO DAILY Multivitamins, Thera [Multivitamin (formulary)] 1 tab PO DAILY lisinopriL [Zestril] 2.5 mg PO DAILY Discontinued Acetaminophen [Tylenol] 1,000 mg PO Q4-6H PRN PRN Reason: Pain Or Fever > 100.5 Potassium Gluconate 99 mg PO DAILY Discharge Medication List Calcium Carbonate/Vitamin D3 [Calcium 600-Vit D3 5 Mcg (200 Iu)] 1 tab PO DAILY 09/24/20 [History] Cetirizine HCl [Zyrtec] 10 mg PO DAILY 09/24/20 [History] Cholecalciferol (Vitamin D3) [Vitamin D3 (5000 Iu)] 125 mcg PO DAILY 09/24/20 [History] Cyanocobalamin [Vitamin B-12] 500 mcg PO DAILY 09/24/20 [History] Ergocalciferol (Vitamin D2) [Drisdol (50,000 Iu)] 1,250 mcg PO TUFR 09/24/20 [History] Levothyroxine Sodium 88 mcg PO DAILY 09/24/20 [History] Multivitamins, Thera [Multivitamin (formulary)] 1 tab PO DAILY 09/24/20 [History] Omeprazole [PriLOSEC] 40 mg PO DAILY 09/24/20 [History] Turmeric Root Extract [Turmeric] 500 mg PO DAILY 09/24/20 [History] lisinopriL [Zestril] 2.5 mg PO DAILY 09/24/20 [History] Follow up Appointment(s)/Referral(s): Lionel Perrin MD [Primary Care Provider] - 1-2 days Activity/Diet/Wound Care/Special Instructions: Any worsening symptoms or fever please notify your DR. You may return to work 09/27/20 with no restrictions.
== END 2020-09-26 12:29 ==
LOC: EC 17:51 → 6PED 18:32
PROVIDERS: ADMIT Hospitalist; ATTEND Hospitalist
DX: N20.0 Calculus of kidney (principal); T18.9XXA Foreign body of alimentary tract, part unspecified, initial encounter; I10 Essential (primary) hypertension; E11.9 Type 2 diabetes mellitus without complications; E03.9 Hypothyroidism, unspecified; K21.9 Gastro-esophageal reflux disease without esophagitis; H26.9 Unspecified cataract; Z20.822 Contact with and (suspected) exposure to COVID-19; Z79.890 Hormone replacement therapy; Z79.899 Other long term (current) drug therapy; Z87.442 Personal history of urinary calculi; Z87.42 Personal history of other diseases of the female genital tract; Z86.19 Personal history of other infectious and parasitic diseases; Z90.49 Acquired absence of other specified parts of digestive tract; Z80.9 Family history of malignant neoplasm, unspecified
CPT/HCPCS: 96361; 96375; 96376; 96374; 99285; 80053 ×2; 85025 ×2; 83036; 87635; 74022 ×2; 72100; G0378 ×3; J2270 ×2; J0780; J2405 ×2